=== PATIENT | female | born 1995 | race Caucasian/White ===

== ENCOUNTER 2016-08-11 00:15 | Observation (INO) | payer SELFPAY ==
[~2016-08-11] VITALS: Ht 154.9 cm; Wt 83.9 kg
[~2016-08-11 00:15] MED LIST: AMOXICILLIN500 M1; AUGMENTIN 875 M1 TAB PO; BIRTH CONTROL PO; FLAGYL250 MG PO; IBUPROFEN600 MG; NATURAL IRON65 MG PO; PNV-DHA1 SGL PO; VICODIN 5/500 M1 TAB PO
== END 2016-08-11 04:30 | disposition left against medical advice (07) ==
LOC: MLD 00:15
PROVIDERS: ADMIT Obstetrics & Gynecology; ATTEND Obstetrics & Gynecology
DX: O26.893 Other specified pregnancy related conditions, third trimester (principal); R10.30 Lower abdominal pain, unspecified; Z3A.33 33 weeks gestation of pregnancy
CPT/HCPCS: 36415; 59025; G0378

== ENCOUNTER 2016-08-13 14:50 | Observation (INO) | payer SELFPAY | END 2016-08-14 16:00 | disposition home or self-care (01) | LOC: MLD 14:50 | PROVIDERS: ADMIT Obstetrics & Gynecology; ATTEND Obstetrics & Gynecology | DX: O36.8130 Decreased fetal movements, third trimester, not applicable or unspecified (principal); Z3A.34 34 weeks gestation of pregnancy | CPT/HCPCS: 36415; 76819; 80048; 82040; 82247; 84155; 84450; 84460; G0378 ==

== ENCOUNTER 2016-08-26 11:30 | Observation (INO) | payer SELFPAY ==
[~2016-08-26] VITALS: Ht 152.4 cm; Wt 83.9 kg
[2016-08-26 12:13] VITALS: BP 119/64
[2016-08-26] MEDS ORDERED: TERBUTALINE 1 MG/ML VIAL SUBQ ONE (14:15)
[2016-08-26] MEDS ORDERED: TERBUTALINE 1 MG/ML VIAL SUBQ SCH (14:50)
[2016-08-26] MEDS ORDERED: INFLUENZA VIRUS VACCINE QUAD 0.5 ML SYR IMVAC SCH (22:00)
== END 2016-08-26 15:21 | disposition home or self-care (01) ==
LOC: MLD 11:30
PROVIDERS: ADMIT Obstetrics & Gynecology; ATTEND Obstetrics & Gynecology
DX: O26.893 Other specified pregnancy related conditions, third trimester (principal); R10.30 Lower abdominal pain, unspecified; Z3A.34 34 weeks gestation of pregnancy
CPT/HCPCS: 76805; 81000; 96372; G0378; J3105; Q0092

== ENCOUNTER 2016-09-18 05:45 | Inpatient (IN) | payer SELFPAY ==
[~2016-09-18] VITALS: Ht 154.9 cm; Wt 81.6 kg
[2016-09-18] MEDS ORDERED: CARBOPROST 250 MCG/ML AMP IM ONE (06:05)
[2016-09-18] MEDS ORDERED: OXYTOCIN 20 UNITS/LR PREMIX 1,000 ML IV PRN (06:05)
[2016-09-18] MEDS ORDERED: LACTATED RINGERS 1,000 ML IV SCH (06:05)
[2016-09-18] MEDS ORDERED: METHYLERGONOVINE 0.2 MG/ML AMP IM PRN (06:05)
[2016-09-18] MEDS ORDERED: AMPICILLIN 2,000 MG in NACL 0.9% 100 ML IV SCH (06:35)
[2016-09-18] MEDS ORDERED: AMPICILLIN 2,000 MG VIAL ONE ×3 (06:45→15:10)
[2016-09-18 06:53] VITALS: BP 120/72
--- NOTE | 2016-09-18 09:12 | NUR ---
PATIENT HAS BEEN SCREENED AND CATEGORIZED LOW NUTRITION RISK. PATIENT WILL BE SEEN WITHIN 7 DAYS OF ADMISSION. 09/24/[address]
[2016-09-18] MEDS ORDERED: CARBOPROST 250 MCG/ML AMP IM PRN (10:00)
[2016-09-18] MEDS ORDERED: OXYTOCIN 10 UNITS/ML VIAL IM SCH (11:28)
[2016-09-18] MEDS ORDERED: OXYTOCIN 20 UNITS/LR PREMIX 1,000 ML IV ONE (11:33)
== END 2016-09-18 16:30 | disposition left against medical advice (07) | DRG 781 ==
LOC: MLD 05:45 → OBSVTOIN 05:55
PROVIDERS: ADMIT Obstetrics & Gynecology; ATTEND Obstetrics & Gynecology
DX: O99.323 Drug use complicating pregnancy, third trimester (principal); F15.90 Other stimulant use, unspecified, uncomplicated; F12.90 Cannabis use, unspecified, uncomplicated; Z53.21 Procedure and treatment not carried out due to patient leaving prior to being seen by health care provider; Z3A.36 36 weeks gestation of pregnancy

== ENCOUNTER 2018-09-26 20:58 | Emergency (ER) | payer OTHER ==
[~2018-09-26] VITALS: Ht 154.9 cm; Wt 87.5 kg
[~2018-09-26 20:58] MED LIST changes: -AMOXICILLIN500 M1; -AUGMENTIN 875 M1 TAB PO; -BIRTH CONTROL PO; +FERR-252 PO; -FLAGYL250 MG PO; -IBUPROFEN600 MG; -NATURAL IRON65 MG PO; -PNV-DHA1 SGL PO; +PREN1SGL25 PO; -VICODIN 5/500 M1 TAB PO
[2018-09-26 21:03] VITALS: BP 122/78
--- NOTE | 2018-09-26 21:07 | NUR ---
PT AMBULATORY TO ER LOBBY W/ STEADY GAIT IN STABLE CONDITION.
--- NOTE | 2018-09-26 21:49 | NUR ---
PT TAKEN TO BED 3
--- NOTE | 2018-09-26 21:53 | NUR ---
BIB SELF WITH C/O CONSTIPATION FOR PAST 10+DAYS. STATES SHE HAS NOT HAD ANY BM FOR 10+ DAYS AND STATED PASSING GAS AGAIN TODAY AFTER DRINKING PRUNE JUICE. STATES SHE HAS SHARP GAS PAINS AND CRAMPING ABD PAIN 10. REPORTS TO BE 9 WEEKS AND IS RECIEVING PRENANTAL CARE.
--- NOTE | 2018-09-26 23:19 | NUR ---
PATIENT ELOPED AT THIS TIME. US CAME TO BEDSIDE TO FIND PATIENT GONE.
== END 2018-09-26 23:19 | disposition left against medical advice (07) ==
LOC: MED 20:58
DX: O26.891 Other specified pregnancy related conditions, first trimester (principal); K59.00 Constipation, unspecified; Z3A.09 9 weeks gestation of pregnancy; Z91.040 Latex allergy status; Z79.899 Other long term (current) drug therapy
CPT/HCPCS: 81002; 81025; 99281; 99282